=== PATIENT | female | born 1995 | race Caucasian/White ===

== ENCOUNTER 2023-06-15 10:29 | Emergency (ER) | payer OTHER ==
[2023-06-15] MEDS ORDERED: FAMOTIDINE 20 MG/50 ML IVPB 20 MG/50 ML MG IVPB ONE ×2 (11:10→11:37)
[2023-06-15] MEDS ORDERED: ACETAMINOPHEN 1000 MG/100 ML BAG IVPB ONE (11:10)
[2023-06-15] MEDS ORDERED: ONDANSETRON 4 MG/2 ML VIAL IVPUSH ONE (11:10)
[2023-06-15] MEDS ORDERED: SODIUM CHLORIDE 0.9% 500 ML INFUS.BAG IV ONE (11:10)
[2023-06-15 11:28] VITALS: BMI 35.4
[2023-06-15] MEDS ORDERED: ONDANSETRON 4 MG/2 ML VIAL ONE (11:36)
[2023-06-15] MEDS ORDERED: ACETAMINOPHEN INJECTION 100 ML IVPB ONE (11:36)
[2023-06-15 12:26] LABS: BASO % 0.2 % (0-2.0); EOS % 0.7 % (0-4.5); HEMATOCRIT 44.1 % (32.4-45.2); HEMOGLOBIN 14.8 GM/dL (10.7-15.3); LYMPH % 7.8 % (8-40); MCH 28.9 pg (25.7-33.7); MCHC 33.7 g/dl (32.0-36.0); MEAN PLT VOLUME 7.6 fl (7.5-11.1); MONO % 4.8 % (3.8-10.2); NEUT % 86.5 % (42.8-82.8); PLATELET COUNT 488 10^3/uL (134-434); RBC 5.13 M/mm3 (3.60-5.2); WHITE BLOOD COUNT 24.1 K/mm3 (4.0-10.0)
[2023-06-15 12:32] LABS: INR 1.01 (0.83-1.09); PROTHROMBIN TIME (PATIENT) 11.7 SEC (9.7-13.0)
[2023-06-15 12:35] LABS: ACTIVATED PTT 28.9 SECONDS (25.2-36.5)
[2023-06-15 12:44] LABS: POTASSIUM 4.5 mmol/L (3.5-5.1)
[2023-06-15 12:48] LABS: ALBUMIN 3.4 g/dl (3.4-5.0); BLOOD UREA NITROGEN 15.3 mg/dL (7-18); MAGNESIUM 1.9 mg/dL (1.8-2.4)
[2023-06-15 12:51] LABS: CREATININE 0.7 mg/dL (0.55-1.3)
[2023-06-15 12:53] LABS: BILIRUBIN,TOTAL 0.2 mg/dL (0.2-1)
[2023-06-15 12:56] LABS: LACTIC ACID 2.3 mmol/L (0.4-2.0)
[2023-06-15 13:03] LABS: ANISOCYTOSIS 3+; MACROCYTOSIS 0; OVALOCYTE 2+
[2023-06-15 13:33] LABS: URINE APPEARANCE CLEAR; URINE BILIRUBIN NEGATIVE (NEGATIVE); URINE COLOR YELLOW; URINE GLUCOSE (UA) NEGATIVE (NEGATIVE); URINE KETONE TRACE (NEGATIVE); URINE LEUK ESTERASE NEGATIVE (NEGATIVE); URINE NITRITE NEGATIVE (NEGATIVE); URINE PROTEIN NEGATIVE (NEGATIVE); URINE UROBILINOGEN 0.2 mg/dL (0.2-1.0)
[2023-06-15 13:36] LABS: HCG,QUALITATIVE URINE Negative
[2023-06-15 15:38] VITALS: TEMP 98
[2023-06-15 17:44] VITALS: BP 122/81; PULSE 69; RESP 15
== END 2023-06-15 17:50 | disposition home or self-care (01) ==
LOC: JER 10:29
PROC: 3E033GC Introduction of Other Therapeutic Substance into Peripheral Vein, Percutaneous Approach (ICD-10-PCS; principal; 2023-06-15)
PROC: 3E033NZ Introduction of Analgesics, Hypnotics, Sedatives into Peripheral Vein, Percutaneous Approach (ICD-10-PCS; 2023-06-15)
PROC: 3E033GC Introduction of Other Therapeutic Substance into Peripheral Vein, Percutaneous Approach (ICD-10-PCS; 2023-06-15)
DX: R10.13 Epigastric pain (principal); K92.0 Hematemesis; R19.7 Diarrhea, unspecified; R10.84 Generalized abdominal pain; Z20.822 Contact with and (suspected) exposure to COVID-19
CPT/HCPCS: 0241U-QW; 36415; 74177-TC; 76705-TC; 80053; 81003; 83605; 83690; 83735; 84100; 84703; 85025; 85610; 85730; 87086; 87186; 93005; 93010; 99285-25; Q9967